=== PATIENT | male | born 1955 | race Caucasian/White ===

== ENCOUNTER 2020-06-18 17:41 | Observation (INO) | payer BC, SELFPAY ==
--- NOTE | ~2020-06-18 | US_ITS ---
EXAMINATION: US renal BI EXAM DATE: 06/19/2020 11:52 INDICATION: Acute kidney injury. TECHNIQUE: Multiple grayscale and Doppler images of the kidneys were obtained (by a technologist who performed the scan) and subsequently reviewed. There is no prior study for comparison. FINDINGS: There is bilateral renal cortical thinning. Right kidney: There is normal contour and echogenicity. It measures 10.9 x 5.4 x 6.0 centimeters. T here are no focal renal lesions identified. There is no hydronephrosis. Left kidney: There is normal contour and echogenicity. It measures 11.3 x 5.2 x 4.8 centimeters. Th ere are no focal renal lesions identified. There is no hydronephrosis. Bladder unremarkable. IMPRESSION: 1. Normal kidney dimensions, but significant renal cortical thinning, atrophy. 2. No hydronephrosis. Reviewed, dictated and finalized at location B. HOME SALES CONSULTANT
[2020-06-18 17:47] VITALS: BP 156/89; PULSE 96; RESP 15; TEMP 36.6; O2SAT 100
[2020-06-18] MEDS: SODIUM CHLORIDE 0.9% IV 1,000 ML 100 ML IV CONT (18:19)
[2020-06-18] MEDS: diphenhydrAMINE HCl INJ 50 MG/ML VIAL IV PUSH ×2 (18:19→23:30)
[2020-06-18] MEDS: FAMOTIDINE 20 MG/2 ML VIAL 40 MG IV PUSH (18:20)
[2020-06-18] MEDS: EPINEPHrine HCL INJ 1 MG/ML AMPUL 0.3 MG IM (18:24)
--- NOTE | 2020-06-18 18:38 | ED.ALLEREA ---
HPI - Allergic Reaction General Chief complaint: Allergic Reaction Stated complaint: angioedema Time Seen by Provider: 06/18/20 17:49 Source: patient Mode of arrival: ambulatory Limitations: no limitations History of Present Illness HPI narrative: 64-year-old man History of hypertension treated with lisinopril Complains of onset of swelling to his face and primarily on the right side of his tongue about an hour before he arrived to the ER He did not come into contact with anything else that would explain this phenomenon apart from the lisinopril which he takes It is never happened before No rash or itching he can breathe he can swallow and he can speak MD complaint: allergic reaction and facial swelling Onset (ago): hour(s) Symptoms: lip swelling and tongue swelling Severity: moderate Treatment prior to arrival: none Previous Allergic Reaction History: none Related Data Allergies Allergy/AdvReac Type Severity Reaction Status Date / Time No Known Allergies Allergy Unknown Unverified 06/16/20 11:02 Review of Systems Review of Systems: All systems reviewed & are unremarkable except as noted in HPI and below Constitutional: Constitutional: Denies chills, Denies fatigue, Denies fever(s), Denies headache(s) and Denies weakness Eyes: Eyes: Reports no additional eye complaints and Denies change in vision ENT: Reports as per HPI and Denies headache(s) Cardiovascular: Cardiovascular: Denies chest pain, Denies leg edema, Denies palpitations and Denies dyspnea Respiratory: Respiratory: Denies cough, Denies dyspnea and Denies wheezing Gastrointestinal: Gastrointestinal: Denies abdominal pain, Denies diarrhea, Denies nausea and Denies vomiting Genitourinary: Genitourinary: Denies hematuria, Denies dysuria and Denies urinary frequency Musculoskeletal: Musculoskeletal: Denies deformity, Denies arthralgias, Denies joint swelling, Denies muscle weakness and Denies numbness Integumentary/Breasts: Skin/Breast: Denies rash and Denies wounds Neurologic: Denies headache(s), Denies focal weakness, Denies numbness and Denies weakness Psychiatric: Psychiatric: Reports no additional psychiatric complaints Endocrine: Endocrine: Denies fatigue and Denies palpitations Hematologic/Lymphatic: Hematologic/Lymphatic: Denies easy bleeding and Denies easy bruising Allergic/Immunologic: Allergic/Immunologic: Denies wheezing PMFSH Family History Family History Grandparent Diabetes mellitus Mother Hypertension Father Family history of cardiovascular disease Acute myocardial infarction, Onset Age: 53 Social History Social History Alcohol intake: current Gender identity (if verbalized by the patient): Male Exam Const: General: no acute distress, well developed, alert and awake Orientation/consciousness: patient oriented x3 (alert) HENMT: Head: normocephalic and atraumatic Ears: external ears normal General nose exam: No nasal discharge present Face and sinus: face symmetric Mouth: Yes Normal oral and palatal mucosa present Teeth and gingiva: dentition normal Throat: posterior oropharynx normal and uvula midline Other: There is moderate swelling to the floor of the mouth and the right side of the tongue with a preserved airway and no stridor or hoarseness Very slight swelling if any to the lips No tenderness or exudates to suggest an infectious cause Eyes: Conjunctivae: conjunctivae normal Sclera: sclerae normal EOM: EOMs intact bilaterally Neck: Neck: normal visual inspection, supple and no JVD Chest: Chest palpation & inspection: deferred Resp: Effort & Inspection: normal respiratory effort and not labored Auscultation: clear to auscultation bilaterally, no wheezes and other (BS =) Cardio: Rate: regular rate Rhythm: regular rhythm Heart sounds: no gallops and no murmurs GI: Inspection:
[2020-06-18 18:39] LABS: Hematocrit 41.1 % (42.0-52.0); Hemoglobin 14.3 g/dL (14.0-18.0); Mean Corpuscular HGB Conc 34.8 g/dl (32-36); Mean Corpuscular Hemoglobin 35.1 pg (26-34); Mean Platelet Volume 10.3 fl (7.4-10.4); Platelet Count Result 123 k/mm3 (150-375); Red Blood Count 4.07 M/mm3 (4.6-6.20); Red Cell Distribution Width 13.2 % (11.5-14.5); White Blood Count 7.7 K/mm3 (4.5-10.0)
[2020-06-18 18:40] VITALS: PULSE 84; RESP 18; O2SAT 100
[2020-06-18 18:52] LABS: Anion Gap 8 mmol/L (8-16); Blood Urea Nitrogen 38 mg/dL (9-20); Calcium 9.6 mg/dL (8.4-10.2); Carbon Dioxide 26 mmol/L (22-30); Chloride 102 mmol/L (98-107); Estimated CRCL calculation 34 ml/min; Estimated Glomerular Filt Rate 27; Glucose 111 mg/dL (75-110); Potassium 5.5 mmol/L (3.4-5.0); Sodium 136 mmol/L (137-145)
[2020-06-18 18:58] LABS: Eosinophils Absolute Manual 0.77 K/mm3 (0.02-0.5); Eosinophils Percent Manual 10 % (0-4); Lymphocytes Absolute Manual 1.61 K/mm3 (1.1-4.5); Lymphocytes Percent Manual 21 % (18-44); Monocytes Absolute Manual 0.69 K/mm3 (0.1-0.90); Monocytes Percent Manual 9 % (3-9); Neutrophils Percent Manual 60 % (46-73); Platelet Estimate Decreased (Adequate); Total Cells Counted 100
[2020-06-18 19:29] VITALS: BP 151/86; PULSE 83; RESP 18; O2SAT 99
[2020-06-18 20:24] VITALS: BP 144/95; PULSE 84; RESP 15; O2SAT 99
[2020-06-18 20:45] VITALS: BP 164/81; PULSE 96; RESP 18; TEMP 36.8; O2SAT 100
--- NOTE | 2020-06-18 20:45 | PC.NURSE ---
This patient, Shakir Isaac, was admitted to ICU Room 8. PatienT oriented to hospital policies and general routines including ID bracelet, bed and alarms, visiting hours, pain management, procedures, bathroom and other care routines, personal items, smoking policy, room service/diet, and visiting hours. Information on how to activate the Rapid Response Team has been discussed. Patient is encouraged to report perceived risks to care and to ask questions if they do not understand what they are told or what they should do.
[2020-06-18 20:55] VITALS: BMI 28.0
[2020-06-18] MEDS: SODIUM CHLORIDE 0.9% IV 1,000 ML 80 ML IV CONT (21:18)
--- NOTE | 2020-06-18 21:25 | PM.IMHP ---
H&P: HPI History of Present Illness Date/Time: 06/18/20 21:25 Chief Complaint: Swelling of the tongue Narrative: Shakir Isaac is a 64 year old male who has a history of hypertension. The patient has been on lisinopril with hydrochlorothiazide for many years. Patient stated that his renal functions have gotten worse and they have taken him off the hydrochlorothiazide. He had no prior history of having angioedema. The patient said that he took his lisinopril is usual this morning. He did well all day and was cooking dinner when he noticed that his tongue felt thicker and was having difficulty talking due to the thick tongue. He was still able to swallow. He also started coughing up thick sputum. No fever chills. Only the right side of his tongue was swollen. The patient's symptoms started approximately 1 hour before he came into the emergency. The patient was given Benadryl, Decadron, Pepcid, and epinephrine. Who is also started on IV fluids. The patient was able to talk in full sentences when I saw him in the emergency room. Patient is being admitted to ICU under observation status on the date of service of 06/18/2020. Review of Systems Review of Systems: All systems reviewed & are unremarkable except as noted in HPI and below Constitutional: Constitutional: Reports as per HPI and Reports no additional constitutional complaints Eyes: Eyes: Reports as per HPI and Reports no additional eye complaints ENT: Reports system reviewed and no additional complaints, except as documented and Reports Normal hearing present Cardiovascular: Cardiovascular: Reports no additional cardiovascular complaints Respiratory: Respiratory: Reports no additional respiratory complaints and Reports no additional respiratory complaints Gastrointestinal: Gastrointestinal: Reports as per HPI and Reports no additional gastrointestinal complaints Musculoskeletal: Musculoskeletal: Reports no additional musculoskeletal complaints Integumentary/Breasts: Skin/Breast: Reports system reviewed and no additional complaints, except as docu and Reports as per HPI Neurologic: Reports system reviewed and no additional complaints, except as documented, Reports as per HPI and Reports Normal hearing present Psychiatric: Psychiatric: Reports no additional psychiatric complaints and Reports as per HPI Endocrine: Endocrine: Reports no additional endocrine complaints Hematologic/Lymphatic: Hematologic/Lymphatic: Reports no additional hematologic/lymphatic complaints Allergic/Immunologic: Allergic/Immunologic: Reports no additional allergic/immunologic complaints [facility] Past Medical History Medical History (Updated 06/18/20 @ 21:32 by Abbie Patterson NP) Chronic kidney disease Dyslipidemia Essential (primary) hypertension Surgical History Surgical History (Updated 06/18/20 @ 21:32 by Abbie Patterson NP) H/O rectal polypectomy History of tonsillectomy Family History Family History (Updated 06/18/20 @ 21:33 by Abbie Patterson NP) Grandparent Diabetes mellitus Mother Hypertension Father Family history of cardiovascular disease Acute myocardial infarction, Onset Age: 53 Sibling Cerebrovascular accident Hypertension Social History Social History (Updated 06/18/20 @ 21:36 by Abbie Patterson NP) Social History: The patient is and has 1 son. His power trade mark attorney for healthcare. The patient is a full code. 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 He has at least 3 cocktails a night. To smoke less than half a pack a cigarettes a day. She does not use any marijuana or illicit drugs. Years smoked: 8 Smoking status: Current every day smoker Tobacco type: cigarettes Alcohol intake: current Drinks per week: 14 Substance use: never Substance use type: does not use Gender identity (if verbalized by the patient): Male Spiritual care concerns: No Meds Home Medications and Allergies Home Medications Medicatio
[2020-06-18 22:00] VITALS: BP 147/77; PULSE 73; RESP 11; O2SAT 98
[2020-06-19] VITALS (15 sets, daily range): BP systolic 125–160; BP diastolic 71–106; PULSE 63–102; RESP 10–21; TEMP 36.5–36.8; O2SAT 96–100
[2020-06-19 03:08] LABS: Basophils Percent Auto 0.6 % (0.2-1.2); Hemoglobin 13.1 g/dL (14.0-18.0); Immature Granulocyte Absolute 0.05 K/mm3 (0.00-0.031); Lymphocytes Absolute Auto 0.62 K/mm3 (0.9-3.2); Lymphocytes Percent Auto 12.2 % (18.3-44.2); Mean Corpuscular HGB Conc 34.5 g/dl (32-36); Mean Corpuscular Volume 101.6 fl (80-100); Mean Platelet Volume 10.8 fl (7.4-10.4); Monocytes Absolute Auto 0.1 K/mm3 (0.1-0.6); Monocytes Percent Auto 1.8 % (2.6-8.5); Neutrophils Absolute Auto 4.3 K/mm3 (1.3-6.7); Neutrophils Percent Auto 84.4 % (45.5-73.1); Platelet Count Result 100 k/mm3 (150-375); Red Blood Count 3.74 M/mm3 (4.6-6.20); Red Cell Distribution Width 12.7 % (11.5-14.5); White Blood Count 5.1 K/mm3 (4.5-10.0)
[2020-06-19 03:35] LABS: Alanine Aminotransferase 34 U/L (4-50); Albumin Level 4.2 g/dL (3.5-5.1); Alkaline Phosphatase 84 U/L (38-126); Anion Gap 8 mmol/L (8-16); Aspartate Amino Transferase 47 U/L (17-59); Bilirubin,Total 0.7 mg/dL (0.2-1.3); Blood Urea Nitrogen 36 mg/dL (9-20); Calcium 8.8 mg/dL (8.4-10.2); Carbon Dioxide 22 mmol/L (22-30); Chloride 106 mmol/L (98-107); Estimated CRCL calculation 39 ml/min; Estimated Glomerular Filt Rate 32; Glucose 169 mg/dL (75-110); Magnesium 1.8 mg/dL (1.6-2.3); Potassium 6.4 mmol/L (3.4-5.0); Sodium 136 mmol/L (137-145)
[2020-06-19] MEDS: SODIUM BICARBONATE 8.4% 50 MEQ/50 ML SYRINGE IV PUSH ×2 (03:59→07:52)
[2020-06-19] MEDS: DEXTROSE 50% 25 GM/50 ML SYRINGE IV PUSH ×2 (03:59→07:51)
[2020-06-19] MEDS: INSULIN HUMAN REGULAR (*BKC) 100 UNITS/ML 10 UNITS IV PUSH ×2 (03:59→07:52)
[2020-06-19] MEDS: ALBUTEROL SULFATE NEB 2.5 MG/0.5 ML INH 10 MG INHALATION ×2 (04:01→08:00)
[2020-06-19] MEDS: CALCIUM GLUCONATE 1,000 MG/10 ML VIAL 1000 MG IV PUSH (04:08)
[2020-06-19 04:19] LABS: Thyroid Stimulating Hormone Reflex 0.841 uIU/mL (0.465-4.68)
[2020-06-19] MEDS: methylPREDNISolone SOD SUCC 125 MG VIAL 60 MG IV PUSH (05:34)
[2020-06-19] MEDS: diphenhydrAMINE HCl INJ 50 MG/ML VIAL IV PUSH (05:34)
[2020-06-19 06:39] LABS: Anion Gap 9 mmol/L (8-16); Blood Urea Nitrogen 38 mg/dL (9-20); Calcium 9.3 mg/dL (8.4-10.2); Carbon Dioxide 23 mmol/L (22-30); Chloride 104 mmol/L (98-107); Estimated CRCL calculation 43 ml/min; Estimated Glomerular Filt Rate 36; Glucose 185 mg/dL (75-110); Potassium 5.1 mmol/L (3.4-5.0); Sodium 136 mmol/L (137-145)
[2020-06-19] MEDS: SODIUM POLYSTYRENE SULFONONATE 15 GM/60 ML BTL 30 GM PO (07:51)
[2020-06-19 08:06] LABS: Glucose Point of Care 166 (65-105)
--- NOTE | 2020-06-19 08:25 | PM.IMPN ---
Progress Note: A&P Assessment and Plan (1) Angioedema: Code(s): T78.3XXA - Angioneurotic edema, initial encounter Status: Acute Assessment and Plan: The patient was given Epinephrine and Decadron in the emergency room and started on Solu-Medrol, Pepcid and Benadryl. He was admitted to the ICU. Continue with Pepcid but will change Benadryl to prn. Wean steroids. Will resume diet. When eating, okay to stop IV fluids. Lisinopril stopped with no plans to resume at this time. Okay to move out of ICU (2) Chronic kidney disease: Qualifiers: Chronic kidney disease stage: stage 3 (moderate) Chronic kidney disease stage 3 subtype: stage 3b (GFR 30-44) Qualified Code(s): N18.32 - Chronic kidney disease, stage 3b Code(s): N18.9 - Chronic kidney disease, unspecified Status: Chronic Assessment and Plan: Patient's creatinine 1.38 in January and 1.76 on 06/12/20. On presentation here, Cr 2.4 but has improved with the IV fluids. Eosinophilia noted. Patietn with hyperkalemia as well but no acidosis. Urine prior to admission showing hematutia. Will proceed with workup and consult Nephrology. (3) Essential (primary) hypertension: Code(s): I10 - Essential (primary) hypertension Status: Chronic Assessment and Plan: Patient's blood pressure was reviewed on 06/19/20 Blood pressure mildly elevated at times. Lisinopril stopped with no plans to resume. The patient recently was taken off hydrochlorothiazide. P.r.n. hydralazine available. Add low dose Norvasc. (4) Dyslipidemia: Code(s): E78.5 - Hyperlipidemia, unspecified Status: Chronic Assessment and Plan: LFTs normal. TG 362, TC 248, LDL 157 and HDL 35 last week. Continue with atorvastatin. (5) Hyperkalemia: Code(s): E87.5 - Hyperkalemia Status: Acute Assessment and Plan: Potasium 5.5 on admission and climbed to 6.4. This was treated appropriately and potassium dropped to 5.1 today. [place] related to his renal failure. Follow serial to ensure stability. (6) Thrombocytopenia: Code(s): D69.6 - Thrombocytopenia, unspecified Status: Acute Assessment and Plan: CBC about a week prior to admission showed platelet clumping. Platelet count here was 123K has dropped to 100K. Does have a macrocytosis and eosinophilia of unclear significance. Consider TTP but felt less likely. Consider hematologic malignancy. (7) Alcoholism: Code(s): F10.20 - Alcohol dependence, uncomplicated Status: Acute Assessment and Plan: Told by staff patient more tremulous. He does admit to drinking 3 drinks per day. Tremors could be related to the steroids. Will start thiamine and folate. Continue CIWA protocol. Librium and Ativan IV available for withdrawal depending on severity. Monitor closely and IMU. (8) DVT prophylaxis: Code(s): Z29.9 - Encounter for prophylactic measures, unspecified Status: Acute Assessment and Plan: SCDs (9) Tobacco abuse: Code(s): Z72.0 - Tobacco use Status: Acute Assessment and Plan: Will plan to educated patient about benefits of tobacco cessation once he is out of the ICU Subjective Date/time seen: 06/19/20 08:25 Interval history: Date of service 06/19 64yo male with CKD and HTN on lisinopril here for angioedema. Patient feels much better. Denies eating any new foods. Has been on lisinopril since 2006 roughly. He is eating okay. No anosimia or dysgeusia. No CP or SOB. States his PCP is setting him up to see a multimedia programmer Exam Narrative: Exam Narrative: AF 97.9 140/106 76 18 98% ra Gen - NARD Chest - CTA bilaterally, nml RR CV - RRR S1/S2; telemetry showing no significant dysrhythmias Abd - Soft, NT/ND, Positive BS Ext - No pedal edema Neuro - Alert and oriented. Nonfocal exam. Psych - Nml mood and affect Skin - Warm and dry. no rashes. Objectiv
[2020-06-19] MEDS: FAMOTIDINE 20 MG/2 ML VIAL IV PUSH ×2 (09:14→19:51)
--- NOTE | 2020-06-19 09:37 | PM.CNNEP ---
Assessment and Plan Assessment and plan (1) HORACE (acute kidney injury): Code(s): N17.9 - Acute kidney failure, unspecified Status: Acute Assessment and Plan: acute insult versus some progression of disease(?) improved since admission follow trend of creatinine with ongoing supportive therapy (2) Chronic kidney disease, stage 3: Code(s): N18.30 - Chronic kidney disease, stage 3 unspecified Status: Acute Assessment and Plan: previous creatinine were 1.38 - 1.76mg/dl this would place him at CKD stage 3a - stage 3b due to hypertension(?) further evaluation/testing in progress... (3) Hyperkalemia: Code(s): E87.5 - Hyperkalemia Status: Acute Assessment and Plan: resolved due to HORACE + ADRI-I use follow trend (4) Angioedema: Code(s): T78.3XXA - Angioneurotic edema, initial encounter Status: Acute Assessment and Plan: resolved/resolving due to lisinopril(?) s/p epinephrine, bendaryl, pecid, and steroids ADRI-I on hold (5) Essential (primary) hypertension: Code(s): I10 - Essential (primary) hypertension Status: Chronic Assessment and Plan: elevated at this time may need to consider another agent since lisinopril on hold follow trend of hemodynamics (6) Alcoholism: Code(s): F10.20 - Alcohol dependence, uncomplicated Status: Acute Assessment and Plan: follow withdrawal protocol Will continue to follow. History of Present Illness Reason for Consult Consult date: 06/19/20 Reason for consult: acute renal failure (on chronic kidney disease) Chief Complaint Chief complaint: Angioedema History of Present Illness Narrative: The patient is a 64 year old [place] male with significant past medical history of hypertension, chronic kidney disease, dyslipidemia who presented to [place] ED with complains of swelling to his face, primary on the right side of his tongue. The patient noted the change with regard to the swelling/edema in the last 24 hr and felt that it seemed to be getting worse as opposed to better which led to his presentation to the ER. He was noted be dysarthric but had no other acute complaints with regard to shortness of breath, difficulty swallowing, drooling or any other symptoms. Workup and evaluation the emergency room demonstrated the patient to be hemodynamically stable although the a for mention right facial swelling and right tongue swelling was evident. Routine blood test demonstrated an elevated creatinine above his baseline in conjunction with hyperkalemia with a potassium of 6.4. He received medical management for the potassium in the form of insulin, D50, albuterol, and Kayexalate and was given some gentle IV fluids as well as epinephrine, Solu-Medrol, Pepcid, and Benadryl for the a for mentioned suspected angioedema. He was subsequent admitted to the ICU for closer monitoring overnight. Renal consultation was requested due to his acute kidney injury/acute renal failure on top of his baseline kidney disease in association with his hyperkalemia. His creatinine is actually better today than it was on admission as is his potassium. The suspected etiology of the a for mentioned angio edema is probably his lisinopril although it should be noted that he has been on this medication for quite a while. His urinalysis was significant for protein and blood in the urine which brings about the concern for some possible vasculitis and/or autoimmune disorder that may be playing a role with his kidney dysfunction. Currently, at the time my evaluation, he appears to be in no acute distress and is tentatively scheduled be transferred out of the ICU. Review of Systems Review of Systems: Narrative: As per HPI. [facility] Past Medical History Medical History (Updated 06/19/20 @ 18:41 by Aniket Foreman MD) Chronic kidney disease Dyslipidemia Essential (primary) hypertension Garcia
[2020-06-19] MEDS: chlordiazePOXIDE (*CRX) 25 MG CAPSULE PO (09:41)
[2020-06-19] MEDS: FOLIC ACID 1 MG/0.2 ML INJ IV PUSH (10:07)
[2020-06-19 10:17] LABS: Creatine Kinase 107 U/L (55-170); Lactate Dehydrogenase 232 U/L (313-618)
[2020-06-19 10:27] LABS: Complement C3 118 mg/dL (88-165)
[2020-06-19 10:36] LABS: Anion Gap 14 mmol/L (8-16); Blood Urea Nitrogen 37 mg/dL (9-20); Calcium 9.6 mg/dL (8.4-10.2); Carbon Dioxide 22 mmol/L (22-30); Chloride 102 mmol/L (98-107); Estimated CRCL calculation 45 ml/min; Estimated Glomerular Filt Rate 38; Glucose 220 mg/dL (75-110); Sodium 138 mmol/L (137-145)
[2020-06-19 10:43] LABS: Erythrocyte Sedimentation Rate 22 mm/hr (0-20)
[2020-06-19 11:25] LABS: Folic Acid 8.6 ng/mL (2.76->20)
--- NOTE | 2020-06-19 12:30 | WPDCNINT ---
Assessment and Plan Assessment and plan (1) Angioedema: Code(s): T78.3XXA - Angioneurotic edema, initial encounter Status: Acute Assessment and Plan: continue steroids, famotidine, benadryl - no symptoms, tongue swelling resolved - likely due to Lisinopril, Will add as allergy - (2) Chronic kidney disease, stage 3: Code(s): N18.30 - Chronic kidney disease, stage 3 unspecified Status: Acute Assessment and Plan: Neprhology following Renal US ordered Hyperkalemia being treated (3) Essential (primary) hypertension: Code(s): I10 - Essential (primary) hypertension Status: Chronic Assessment and Plan: Have discontinued lisinopril and hydrochlorothiazide due to acute on chronic kidney disease. -p.r.n. hydralazine has been added -low-dose amlodipine has been started (4) Dyslipidemia: Code(s): E78.5 - Hyperlipidemia, unspecified Status: Chronic Assessment and Plan: Continue atorvastatin Additional Plan Discussed with patient and updated him with his condition and plan of care. I answered all questions Code status: Full code Critical care time spent: 41 minutes Due to a high probability of clinically significant, life threatening deterioration, the patient required my highest level of preparedness to intervene emergently and I personally spent this critical care time directly and personally managing the patient. This critical care time included obtaining a history; examining the patient; pulse oximetry; ordering and review of studies; arranging urgent treatment with development of a management plan; evaluation of patient's response to treatment; frequent reassessment; and discussions with other providers. It was exclusive of separately billable procedures and treating other patients and teaching time. Please see Assessment and Plan section and the rest of the note for further information on patient assessment and treatment Security Expert Consult Note Consult date: 06/19/20 Time Seen: 07:11 Reason for consult: Angioedema, swelling of the tongue HPI: Shakir Isaac is a 64 year old male with significant past medical history of hypertension, chronic kidney disease, dyslipidemia, patient has been on lisinopril and hydrochlorothiazide for many years. Patient presented the ED with complains of swelling to his face, primary on the right side of his tongue. He was dysarthric, denies any shortness of breath, difficulty swallowing, drooling. Patient was given epinephrine, Solu-Medrol, Pepcid and Benadryl. Patient was transferred to the ICU further management. Patient was also given some IV fluids. Injury with elevated potassium levels. Creatinine on admission was 2.4 and potassium had increased to 6.4. Patient was given insulin D50, albuterol and Kayexalate Patient was seen and examined the ICU this morning. States his swelling of the tongue has resolved so has his dysarthria. Patient denies any shortness of breath, chest pain, abdominal pain, nausea, vomiting, excess drooling, difficulty swallowing. Patient states he drinks 3 cocktails a day and smokes about 6-7 cigarettes per day. Denies any illicit drug use Review of Systems Review of Systems: All systems reviewed & are unremarkable except as noted in HPI and below PMFSH Past Medical History Medical History (Updated 06/19/20 @ 09:41 by Skip Godoy MD) Chronic kidney disease Dyslipidemia Essential (primary) hypertension Surgical History Surgical History (Updated 06/18/20 @ 21:32 by Abbie Patterson NP) H/O rectal polypectomy History of tonsillectomy Family History Family History (Updated 06/18/20 @ 21:33 by Abbie Patterson NP) Grandparent Diabetes mellitus Mother Hypertension Father Family history of cardiovascular disease Acute myocardial infarction, Onset Age: 53 Sibling Cerebrovascular accident Hypertension Social History Social History (Updated 06/18/20 @ 21
--- NOTE | 2020-06-19 12:49 | PC.NURSE ---
This patient, Shakir Isaac, was transferred to [facility] via wheelchair on 06/19/20 at 1240. Personal belongings sent with patient. Report given to JANAK Parker. Appropriate documentation sent with patient.
[2020-06-19 12:50] LABS: Creatinine Urine 115.3 mg/dL; Total Protein Urine Random 11 mg/dL
[2020-06-19 12:51] LABS: Sodium Urine Random 63 meq/L
--- NOTE | 2020-06-19 12:59 | PC.NURSE ---
This patient, Shakir Isaac, was received from [icu ] on 06/19/20 at 1259. Patient/family oriented to unit policies and routines
[2020-06-19 13:21] LABS: Add Urine Microscopic? YES; Appearance Urine Clear (Clear); Bilirubin Urine Negative (Negative); Blood Urine Negative (Negative); Color Urine Yellow (Yellow); Glucose Urine UA 3+ mg/dL (Negative); Ketones Urine Negative (Negative); Leukocyte Esterase Ur Negative LEU/UL (Negative); Nitrate Urine Negative (Negative); Protein Urine Negative (Negative); RBC Urine 0-2 /hpf (0-2); Specific Grav Ur 1.015 (1.001-1.035); Squamous Epithelial Cell Urine Rare /hpf (Few); Urobilinogen Urine Negative mg/dL (<2.0); WBC Urine 0-3 /hpf
[2020-06-19] MEDS: THIAMINE HCL 200 MG/2 ML VIAL 100 MG IV PUSH (13:59)
[2020-06-19] MEDS: methylPREDNISolone SOD SUCC 40 MG VIAL IV PUSH ×2 (13:59→19:51)
[2020-06-20] VITALS (7 sets, daily range): BP systolic 121–142; BP diastolic 66–78; PULSE 52–81; RESP 18–22; TEMP 36–36.9; O2SAT 96–100
[2020-06-20] MEDS: methylPREDNISolone SOD SUCC 40 MG VIAL IV PUSH (04:24)
[2020-06-20 04:53] LABS: Basophils Percent Auto 0.1 % (0.2-1.2); Hematocrit 33.3 % (42.0-52.0); Hemoglobin 11.5 g/dL (14.0-18.0); Immature Granulocyte Absolute 0.12 K/mm3 (0.00-0.031); Immature Granulocyte Percent A 1.4 % (0-0.5); Lymphocytes Absolute Auto 0.89 K/mm3 (0.9-3.2); Lymphocytes Percent Auto 10.4 % (18.3-44.2); Mean Corpuscular HGB Conc 34.5 g/dl (32-36); Mean Corpuscular Hemoglobin 34.4 pg (26-34); Mean Corpuscular Volume 99.7 fl (80-100); Mean Platelet Volume 11.3 fl (7.4-10.4); Monocytes Absolute Auto 0.5 K/mm3 (0.1-0.6); Monocytes Percent Auto 6.1 % (2.6-8.5); Neutrophils Absolute Auto 7.1 K/mm3 (1.3-6.7); Platelet Count Result 95 k/mm3 (150-375); Red Blood Count 3.34 M/mm3 (4.6-6.20); Red Cell Distribution Width 12.8 % (11.5-14.5); White Blood Count 8.6 K/mm3 (4.5-10.0)
[2020-06-20 05:07] LABS: Albumin Level 3.8 g/dL (3.5-5.1); Anion Gap 7 mmol/L (8-16); Blood Urea Nitrogen 43 mg/dL (9-20); Calcium 8.5 mg/dL (8.4-10.2); Carbon Dioxide 27 mmol/L (22-30); Chloride 102 mmol/L (98-107); Estimated CRCL calculation 45 ml/min; Estimated Glomerular Filt Rate 38; Glucose 159 mg/dL (75-110); Magnesium 1.8 mg/dL (1.6-2.3); Phosphorus 4.1 mg/dL (2.5-4.5); Potassium 4.7 mmol/L (3.4-5.0); Sodium 136 mmol/L (137-145)
[2020-06-20] MEDS: THIAMINE HCL 100 MG TABLET PO (08:17)
[2020-06-20] MEDS: FAMOTIDINE 20 MG/2 ML VIAL IV PUSH (08:17)
[2020-06-20] MEDS: predniSONE 20 MG TABLET PO (08:17)
[2020-06-20] MEDS: FOLIC ACID 1 MG TABLET PO (08:17)
--- NOTE | 2020-06-20 14:46 | PM.DS ---
DS: Admitting Diagnosis Admitting Diagnosis Admitting Diagnosis: Angioedema DS: Discharge Diagnosis Discharge Diagnosis (1) Angioedema: Code(s): T78.3XXA - Angioneurotic edema, initial encounter Status: Acute Assessment and Plan: Presented with complaints of right sided tongue swelling, felt to be secondary to lisinopril use. He was admitted to the ICU and received epinephrine and dexamethasone. He was then started on solu-medrol which was weaned, along with pepcid and benadryl. Facial swelling resolved entirely. Airway was patent and he had no difficulty with swallowing or breathing. He will continue with prednisone x5 days as well as pepcid with benadryl prn. Lisinopril discontinued and has been listed as an allergy. (2) Chronic kidney disease: Qualifiers: Chronic kidney disease stage: stage 3 (moderate) Chronic kidney disease stage 3 subtype: stage 3b (GFR 30-44) Qualified Code(s): N18.32 - Chronic kidney disease, stage 3b Code(s): N18.9 - Chronic kidney disease, unspecified Status: Chronic Assessment and Plan: Patient's creatinine 1.38 in January and 1.76 on 06/12/20. On presentation here, Cr was 2.4 but improved with the IV fluids. Eosinophilia noted. Patient had hyperkalemia without acidosis that resolved. Urine prior to admission showed hematuria. Nephrology was consulted with serology and immunology pending. Renal US showed renal atrophy without hydronephrosis. Creatinine improved to 1.8, which seems to be consistent with new baseline. He will need outpatient follow up. Repeat BMP in 1 week. (3) Essential (primary) hypertension: Code(s): I10 - Essential (primary) hypertension Status: Chronic Assessment and Plan: Blood pressure was reviewed and was slightly elevated above target at times in the 150s. Lisinopril was discontinued. He was started on low dose losartan and recommended monitoring BP at home 2-3 times weekly for further review. (4) Dyslipidemia: Code(s): E78.5 - Hyperlipidemia, unspecified Status: Chronic Assessment and Plan: LFTs normal. TG 362, TC 248, LDL 157 and HDL 35 last week. Continue with atorvastatin. (5) Hyperkalemia: Code(s): E87.5 - Hyperkalemia Status: Acute Assessment and Plan: Potasium 5.5 on admission and climbed to 6.4. This was treated appropriately and potassium improved. [place] related to his renal failure. Potassium 4.7 at time of discharge. Repeat BMP in 1 week. (6) Thrombocytopenia: Code(s): D69.6 - Thrombocytopenia, unspecified Status: Acute Assessment and Plan: CBC about a week prior to admission showed platelet clumping. Platelet count here was 123K at presentation and dropped to 95K. He had eosinophilia. TTP considered but felt less likely. Plan to repeat CBC in 1 week as an outpatient. (7) Alcoholism: Code(s): F10.20 - Alcohol dependence, uncomplicated Status: Acute Assessment and Plan: He reports drinking 3 alcoholic beverages per day. CIWA protocol in place. CIWA scores remained <5. He was noted to be slightly tremulous but this wa felt to be related to steroids. He did not demonstrate any other withdrawal symptoms. He was initiated on thiamine and folic acid. Alcohol cessation discussed. (8) DVT prophylaxis: Code(s): Z29.9 - Encounter for prophylactic measures, unspecified Status: Acute Assessment and Plan: SCDs (9) Tobacco abuse: Code(s): Z72.0 - Tobacco use Status: Acute Assessment and Plan: Reports smoking 1/2 pack per day. Declined need for nicotine patch during stay. He was educated on smoking cessation for 5 minutes. DS: Summary Hospital Course Reason for hospitalization: Angioedema Hospital Course: date of admission: 06/18/2020 date of discharge: 06/20/2020 Shakir Isaac is a 64-year-old male with history of CKD, dyslipidemia, and hypertension w
[2020-06-23 07:13] LABS: Anti Streptolysin O Screen <50 IU/mL (<200)
[2020-06-23 22:16] LABS: Albumin 4.5 g/dL (3.8-4.8); Alpha 1 Globulin 0.3 g/dL (0.2-0.3); Alpha 2 Globulin 0.7 g/dL (0.5-0.9); Beta 1 Globulin 0.5 g/dL (0.4-0.6); Gamma Globulin 0.9 g/dL (0.8-1.7); Protein, Total 7.3 g/dL (6.1-8.1)
[2020-06-23 23:44] LABS: Creatinine, Random Urine 113 mg/dL (20-320); Total Protein/Creatinine Ratio 257 mg/g creat (22-128)
[2020-06-24 13:25] LABS: Chloride Rand Ur 64 mmol/L (32-290); Chloride/Creatinine Rand Ur 57 (23-275); Creatinine Random Urine 112 mg/dL (20-320)
[2020-06-24 20:55] LABS: Complement Total CH50 >60 U/mL (31-60)
[2020-06-24 22:10] LABS: ANCA Screen Negative (Negative)
[2020-06-25 17:22] LABS: SM Antibody <1.0; SM/RNP Antibody <1.0
[2020-06-25 20:56] LABS: Anti Glomerular Basement Memb <1.0 AI (<1.0)
== END 2020-06-20 15:35 | disposition home or self-care (01) ==
LOC: ANHED 18:48 → ANHICU 20:04 → ANHIMU 06-19 12:50
PROVIDERS: Family Medicine; Internal Medicine; Internal Medicine Nephrology; Nurse Practitioner; Admitting Provider Family Medicine; Emergency Provider Emergency Medicine; PCP Family Medicine; Visit Provider Internal Medicine
DX: T78.3XXA Angioneurotic edema, initial encounter (principal); N17.9 Acute kidney failure, unspecified; I12.9 Hypertensive chronic kidney disease with stage 1 through stage 4 chronic kidney disease, or unspecified chronic kidney disease; N18.32 Chronic kidney disease, stage 3b; D53.9 Nutritional anemia, unspecified; E78.5 Hyperlipidemia, unspecified; F17.210 Nicotine dependence, cigarettes, uncomplicated; E87.5 Hyperkalemia; D69.6 Thrombocytopenia, unspecified; F10.20 Alcohol dependence, uncomplicated; Z79.899 Other long term (current) drug therapy
CPT/HCPCS: 36415; 76775; 80048; 80053; 80069; 81001; 81050; 82436; 82550; 82570; 82607; 82746; 82948; 83520; 83615; 83735; 84155; 84156; 84165; 84166; 84300; 84443; 85025; 85652; 85999; 86021; 86038; 86060; 86160; 86162; 86225; 86235; 86334; 86850; 86900; 86901; 88108; 94640; 96361; 96372; 96374; 96375; 96376; 99285; A9270; G0378; J0171; J0610; J1100; J1200; J1815; J2920; J2930; J3411; J7030; J7512

== ENCOUNTER → 2020-06-26 11:18 | Outpatient (CLI) | payer BC, SELFPAY ==
--- NOTE | ~2020-06-26 | CT_ITS ---
EXAMINATION: CT abdomen pelvis wo con DATE: 06/26/2020 11:33 INDICATION: Chronic kidney disease. Hematuria. TECHNIQUE: Computed tomography (CT) of the abdomen and pelvis was performed without intravenous contr ast. Automated exposure control and iterative reconstruction technique were employed. The dose-length product was 911.89 mGy-cm. COMPARISON: None FINDINGS: Lung bases are clear. Heart size is normal. No pericardial or pleural effusion. Atherosclerotic coron geri artery and aortic valve calcifications. Attenuation likely tiny gallstones in the dependent aspec t of the otherwise normal gallbladder. Liver, spleen, pancreas and bilateral adrenal glands are nancy l. Kidneys and ureters are normal with no urolithiasis or hydronephrosis. Relatively symmetric nonspe cific mild bilateral perinephric stranding. There are few scattered colonic diverticula without adjac ent inflammatory change to suggest diverticulitis. Small bowel and appendix are normal. Bladder is no rmal. Small fat-containing right inguinal hernia. No free intraperitoneal gas or fluid. There is calc ified atherosclerosis of the aorta and many of the other arteries. No pathologically enlarged abdomi nal or pelvic lymphadenopathy. Mild lumbar levocurvature. Small lucent L1 hemangioma. IMPRESSION: 1. No urolithiasis or acute intra-abdominal/pelvic process. Line 2. Cholelithiasis. 3. Small fat-containing right inguinal hernia. Reviewed, dictated and finalized at location [facility]
== END ==
PROVIDERS: PCP Family Medicine; Visit Provider Physician Assistant
DX: N18.9 Chronic kidney disease, unspecified (principal); R31.9 Hematuria, unspecified; K80.20 Calculus of gallbladder without cholecystitis without obstruction; K40.90 Unilateral inguinal hernia, without obstruction or gangrene, not specified as recurrent
CPT/HCPCS: 74176